=== PATIENT | male | born 1950 | race Caucasian/White ===

== ENCOUNTER 2019-01-03 20:15 | Emergency (ER) | payer OTHER, SELFPAY ==
[2019-01-03 20:16] VITALS: PULSE 88; RESP 32; TEMP 33.3; O2SAT 81; BMI 43.4
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
[2019-01-03 20:30] VITALS: BP 53/42; PULSE 76; RESP 21; O2SAT 84
[2019-01-03 20:43] VITALS: BP 74/46; PULSE 80; RESP 29; O2SAT 88
[2019-01-03 20:57] VITALS: BP 66/41; PULSE 70; RESP 25
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
[2019-01-03 21:02] VITALS: BP 50/33; PULSE 72; RESP 19; O2SAT 90
[2019-01-03] MEDS: Rocuronium Bromide 50 MG/5 ML Vial 150 MG IV (21:10)
[2019-01-03] MEDS: Ketamine HCl 500 MG/5 ML Vial 50 MG IV (21:11)
[2019-01-03 21:20] LABS: Absolute Lymphocyte Count 7.33 X10^3/ul (0.83-4.51); Absolute Neutrophil Count 3.2 X10^3/uL (2.0-7.7); Basophil# 0.06 X10^3/uL; Basophil% 0.5 % (0-1); Differential Indicated SCAN CRITERIA MET; Eosinophil# 0.27 X10^3/uL; Eosinophils% 2.2 % (0-5); Hematocrit 51.2 % (40-54); Hemoglobin 15.7 g/dl (13.0-16.5); Lymphocyte # 7.33 X10^3/ul (4.0); Lymphocyte % 59.7 % (19-41); Mean Corp Hgb Conc 30.7 g/gl (32-36); Mean Corpuscular Hgb 30.9 pg (27.0-32.0); Mean Corpuscular Volume 100.8 fL (80-94); Mean Platelet Vol. 9.6 fl (6.2-12.0); Monocyte# 1.28 X10^3/uL; Monocyte% 10.4 % (0-10); Neutrophil # 3.22 X10^3/uL (2.7-7.7); Neutrophil % 26.3 % (47-70); POSITIVE COUNT NO; POSITIVE DIFFERENTIAL YES; POSITIVE MORPHOLOGY YES; Platelet Count 200 K/mm3 (150-450); RBC Distribution Width CV 14.6 % (11.6-14.6); RBC Distribution Width SD 53.5 fl (35.1-43.9); Red Blood Count 5.08 M/mm3 (4.6-6.2); White Blood Count 12.3 K/mm3 (4.4-11.0)
[2019-01-03 21:21] LABS: International Normalized Ratio 1.1; Partial Thromboplast Time 35.5 Seconds (24.1-36.2); Prothrombin Time (Protime)PT. 14.4 SECONDS (11.7-14.9)
[2019-01-03 21:24] VITALS: PULSE 94; RESP 20
--- NOTE | 2019-01-03 21:24 | CPS ---
ALBUTEROL tx's given to lifeflight RN to be given in line with their transport vent during air transfer. Verbal order given by Dr. Lester.
[2019-01-03 21:26] LABS: AST(SGOT) 91 U/L (15-37); Alanine Aminotransfer ALT/SGPT 85 U/L (16-61); Albumin, Serum 3.5 g/dL (3.2-5.0); Alkaline Phosphatase 40 U/L (45-117); Anion Gap 19 (5-15); BUN 8 mg/dL (7-18); BUN/Creat Ratio 7.5 RATIO (10-20); Chloride 91 mmol/L (98-107); Creatinine, Serum 1.06 mg/dL (0.70-1.30); EST Glomerular Filtration Rate 74 mL/min (>60); Est Glom Filt Rate - Afr Amer 89 mL/min (>60); Estimated Creatinine Clearance 72.19 ml/min; Globulin 3.5 g/dL (2.2-4.2); Glucose 161 mg/dL (74-106); Lipase 426 U/L (73-393); Potassium 3.2 mmol/L (3.5-5.1); Sodium Level 132 mmol/L (136-145)
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
--- NOTE | 2019-01-03 21:42 | ED.RN ---
[facility]. DECISION MADE TO INTUBATE PATIENT. PT INTUBATED BY . SEE CRITICAL CARE ASSMNT FOR FURTHER. PT CARE TRANSFERRED TO [facility] AT 2134. BLOOD PRODUCTS GIVEN: 2049: UNITS [id number] AND [id number] -STARTED 2052: UNITS [id number] AND [id number] -STARTED BOTH UNITS STILL INFUSING ON TRANSFER
[2019-01-03 21:47] LABS: Differential Comment SCANNED
== END 2019-01-03 21:40 | disposition short-term general hospital (02) ==
LOC: ED 21:12
PROVIDERS: Emergency Provider Emergency Medicine
DX: S72.91XB Unspecified fracture of right femur, initial encounter for open fracture type I or II (principal); T79.4XXA Traumatic shock, initial encounter; R41.0 Disorientation, unspecified; V47.0XXA Car driver injured in collision with fixed or stationary object in nontraffic accident, initial encounter; Y93.I9 Activity, other involving external motion; Y92.410 Unspecified street and highway as the place of occurrence of the external cause; Y99.8 Other external cause status
CPT/HCPCS: 31500; 36430; 36556; 51702; 71045; 72170; 73552; 80053; 83690; 84484; 85025; 85610; 85730; 86850; 86900; 86920; 86922; 94640; 96374; 96375; 99251; 99285; J7030; P9016; A4216; G0463

== ENCOUNTER 2023-07-08 12:17 | Emergency (ER) | payer OTHER, SELFPAY ==
[2023-07-08 12:18] VITALS: BP 110/59; PULSE 89; RESP 18; TEMP 36.2; O2SAT 94
[2023-07-08 12:25] VITALS: BP 107/74; PULSE 94; RESP 14; O2SAT 93; BMI 39.8
--- NOTE | 2023-07-08 12:56 | EKG12_ITS ---
Test Reason : AFIB Blood Pressure : / mmHG Vent. Rate : 099 BPM Atrial Rate : 000 BPM P-R Int : 000 ms QRS Dur : 096 ms QT Int : 344 ms P-R-T Axes : 000 260 062 degrees QTc Int : 441 ms Atrial fibrillation with premature ventricular or aberrantly conducted complexes Right superior axis deviation Pulmonary disease pattern Septal infarct , age undetermined Abnormal ECG Confirmed by TRAV GARCIA, FELIX ([id number]), story editor ROSALVA RNICON ([id number]) on 07/14/2023 9:02:04 AM Referred By: Confirmed By:JOEL RAVI MD
--- NOTE | 2023-07-08 12:57 | EDS_ITS ---
HPI History of Present Illness Chief Complaint: Palpitations Detail of Chief Complaint: Low blood pressure Informant: patient Narrative Narrative: Patient presents to the emergency department complaint of low blood pressure this morning. Patient states that he was just discharged from the [place] yesterday where they attempted to cardiovert him out of his A-fib unsuccessfully. Patient on Eliquis. Patient on metoprolol. Patient to start amiodarone but not until this coming Friday which is about 5 days. Patient checked his blood pressure this morning and noted that it was 88/50. He repeated 2 hours later and was 88/51. Patient called the nurse line and was advised to be evaluated. He is without complaints. He denies chest pain or shortness of breath out of the ordinary. [facility] Medical History (Updated 07/08/23 @ 14:[address] Axel Srivastava, ) Atrial fibrillation COPD (chronic obstructive pulmonary disease) Former smoker Presence of artificial leg Home Medications albuterol sulfate 90 mcg/actuation aerosol inhaler (Ventolin HFA) 1 - 2 puff inhalation Q4H PRN PRN Wheezing ##1 09/13/17 [Rx Last Taken Unknown] atorvastatin 20 mg tablet 20 mg PO QHS 09/13/17 [History Last Taken Unknown] cholecalciferol (vitamin D3) 50 mcg (2,000 unit) capsule (Vitamin D3) 2,000 unit PO DAILY 09/13/17 [History Last Taken Unknown] finasteride 5 mg tablet 5 mg PO DAILY 09/13/17 [History Last Taken Unknown] hydrocodone-acetaminophen 5-325mg 5mg-325mg 1 - 2 tab PO Q4H PRN PRN Pain ##4 09/13/17 [Rx Last Taken Unknown] naproxen 500 mg tablet 500 mg PO BID PRN #20 tabs 09/13/17 [Rx Last Taken Unknown] Allergy/AdvReac Type Severity Reaction Status Date / Time No Known Allergies Allergy Verified 07/08/23 12:18 Social History Smoking Status: Former smoker ROS ROS ED ROS Narrative Hypotension Review of Systems ROS Unobtainable: other Constitutional Constitutional ED: Reports lethargy; Denies chills, fever(s), sweats or weight loss Eyes Eyes: Denies blurry vision, change in vision or diplopia ENT ENT ED: Denies rhinorrhea or sore throat Cardiovascular Cardiovascular: Denies chest pain, orthopnea or racing heartbeat Respiratory/Chest Respiratory/Chest: Denies cough, dyspnea, dyspnea on exertion, orthopnea or sputum Gastrointestinal Gastrointestinal: Denies abdominal pain, diarrhea, nausea or vomiting Genitourinary Genitourinary ED: Denies dysuria, hematuria or urinary frequency Musculoskeletal Musculoskeletal: Denies arthralgias, back pain, myalgias or neck pain Integumentary Denies abscess, Abrasions or rash Neurologic Neurologic: Denies headache(s) or weakness Psychiatric Psychiatric: Denies anxiety, depression or suicidal thoughts Endocrine Endocrinology: Denies polydipsia, polyphagia or polyuria Hematologic/Lymphatic Hematologic/Lymphatic: Denies easy bleeding, easy bruising or lymphadenopathy Allergic/Immunologic Allergic/Immunologic ED: Denies mouth swelling, tongue swelling or urticaria EXAM Physical Exam Const Vital Signs: 07/08/23 12:18 07/08/23 12:25 07/08/23 13:49 Temperature 97.1 F L Temperature Source Temporal Pulse Rate 89 94 96 Respiratory Rate 18 14 18 Blood Pressure 110/59 L 107/74 96/76 Blood Pressure Mean 76 85 82 Pulse Ox 94 93 98 Oxygen Delivery Method Room Air Room Air Room Air 07/08/23 14:53 07/08/23 14:53 Temperature Temperature Source Pulse Rate 86 79 Respiratory Rate 95 H 16 Blood Pressure 162/98 H Blood Pressure Mean Pulse Ox 99 Oxygen Delivery Method Positive well nourished and well developed General Appearance ED: well developed and NAD HEENT Reports TM's clear and moist mucous membranes normocephalic and atraumatic; Negative for trauma or tenderness Tympanic Membrane ED: Yes TM's clear Eyes PERRL and EOMs intact bilaterally General Eye ED: Negative for pale conjunctiva or scleral icterus Neck no lymphadenopathy, supple and no JVD General: Negative for tenderness Chest Wall inspection of chest normal and palpation of chest normal Chest: Negative for tenderness Resp normal respiratory effort and clear to auscultation bilaterally Effort and Inspection: Negative for respiratory distress or pain with movement Auscultation: Negative for rhonchi, wheezes or diminished lung sounds Cardio S1 normal heart sound, S2 normal heart sound and no murmurs; Negative for regular rate or regular rhythm Rhythm: abnormal rhythm irregularly irregular Peripheral Pulses: pulses 2+ throughout GI normal to inspection, nondistended, normoactive bowel sounds, soft to palpation, non-tender, non-distended and no masses Back/Spine no CVA tenderness and no thoracic nor lumbar tenderness Extremity normal to inspection General Extremety ED: Negative for edema General Extremity: Negative for edema Neuro oriented x3, CN's II-XII intact bilaterally, no sensory deficits noted and gait normal Sensorium / Orientation: awake, alert, oriented to person, oriented to place and oriented to time Motor Exam: strength 5/5 throughout and strength abnormal Psych mental status grossly normal Skin no rashes or lesions noted and no wounds MDM MDM MDM Narrative Medical decision making narrative: Patient presents with asymptomatic hypotension. He did bring a journal in with his blood pressures and looking back it does appear that he frequently runs systolic in the low 100s and 90s. He is asymptomatic. I will obtain some basic lab workup. EKG obtained arrival showed A-fib with a rate of 99 bpm with occasional PVCs. Rate was 99 bpm. CBC with differential was essentially unremarkable. Chemistries unremarkable. Troponin was normal at 5. I did give patient a 500 cc fluid bolus and blood pressures running from upper 90s systolic to the mid 80s systolic. He is completely asymptomatic. He ambulated in the [facility] without difficulty. I did discuss case with nurse practitioner for the [place] who participated in the patient's care when he was just recently admitted. Patient's blood pressures were in the 90s systolic there as well for the week that he was there. I was asked to cut patient's Lasix from 40 mg a day to 20 mg a day and patient to start his amiodarone the following Friday. Patient I feel can be safely discharged home. He is advised to return if lightheaded, dizzy, chest pain, short of breath, or condition should worsen anyway. Lab Data Attestation: I reviewed the patient's lab results. Labs: Laboratory Results - last 24 hr 07/08/23 12:30 WBC 11.4 H RBC 5.85 Hgb 17.3 H Hct 54.1 H MCV 92.5 MCH 29.6 MCHC 32.0 RDW Std Deviation 53.0 H RDW Coeff of Darci 15.9 H Plt Count 331 MPV 9.5 Immature Gran % (Auto) 0.500 Neut % (Auto) 49.5 Lymph % (Auto) 33.2 [place] % (Auto) 13.3 H Eos % (Auto) 2.5 Baso % (Auto) 1.0 Absolute Neuts (auto) 5.6 Absolute Lymphs (auto) 3.79 Nucleated RBC % 0 Differential Comment SCANNED Diff Path Review May foll Sodium 135 L Potassium 4.5 Chloride 101 Carbon Dioxide 26.0 Anion Gap 8 BUN 21 H Creatinine 0.97 Estim Creat Clear Calc 72.24 Est GFR (MDRD) Af Amer 97 Est GFR (MDRD) Non-Af 80 BUN/Creatinine Ratio 21.6 H Glucose 96 Calcium 9.0 Troponin I High Sens 5 EKG Initial EKG: Attestation: I personally reviewed and interpreted this EKG as follows: Comments: Atrial fibrillation with a rate of 99 bpm with PVCs, no acute ST segment changes Discharge Plan Triage Chief Complaint: Palpitations ED Provider: Axel Srivastava Dx/Rx/DC Orders Clinical Impression: Hypotension Instructions: Hypotension Dc Prescriptions: No Action atorvastatin 20 MG tablet 20 mg PO QHS finasteride 5 MG tablet 5 mg PO DAILY cholecalciferol (vitamin D3) [Vitamin D3] 2,000 UNIT capsule 2,000 unit PO DAILY naproxen 500 MG tablet 500 mg PO BID PRN Qty: 20 0RF albuterol sulfate [Ventolin HFA] 1 INHALER inhaler 1 - 2 puff inhalation Q4H PRN PRN (Reason: Wheezing) Qty: 1 0RF hydrocodone-acetaminophen 1 TABLET tablet 1 - 2 tab PO Q4H PRN PRN (Reason: Pain) Qty: 4 0RF Primary Care Provider: [facility] Referrals: [facility] [Primary Care Provider] - Activity Restrictions/Additional Instructions: Cut your Lasix (furosemide) from 40 mg/day to 20 mg/day. Disposition Disposition: Home, Self Care
[2023-07-08 13:37] LABS: Absolute Lymphocyte Count 3.79 X10^3/uL (0.83-4.51); Absolute Neutrophil Count 5.6 X10^3/uL (2.0-7.7); Basophil# 0.11 X10^3/uL; Eosinophil# 0.29 X10^3/uL; Eosinophils% 2.5 % (0-5); Hematocrit 54.1 % (40-54); Hemoglobin 17.3 g/dL (13.0-16.5); Lymphocyte # 3.79 X10^3/ul (0.83-4.51); Lymphocyte % 33.2 % (19-41); Mean Corpuscular Hgb 29.6 pg (27.0-32.0); Mean Corpuscular Volume 92.5 fL (80-94); Mean Platelet Vol. 9.5 fl (6.2-12.0); Monocyte# 1.52 X10^3/uL; Monocyte% 13.3 % (0-10); NRBC Flagged by Analyzer 0 % (0-5); Neutrophil # 5.63 X10^3/uL (2.7-7.7); Neutrophil % 49.5 % (47-70); POSITIVE DIFFERENTIAL YES; Platelet Count 331 K/mm3 (150-450); RBC Distribution Width CV 15.9 % (11.6-14.6); Red Blood Count 5.85 M/mm3 (4.6-6.2); White Blood Count 11.4 K/mm3 (4.4-11.0)
[2023-07-08 13:46] LABS: Anion Gap 8 (5-15); BUN 21 mg/dL (7-18); BUN/Creat Ratio 21.6 RATIO (10-20); Chloride 101 mmol/L (98-107); Creatinine, Serum 0.97 mg/dL (0.70-1.30); EST Glomerular Filtration Rate 80 mL/min (>60); Est Glom Filt Rate - Afr Amer 97 mL/min (>60); Estimated Creatinine Clearance 72.24 ml/min; Glucose 96 mg/dL (74-106); Potassium 4.5 mmol/L (3.5-5.1); Sodium Level 135 mmol/L (136-145); Troponin-I HS 5 pg/mL (3.0-78.0)
[2023-07-08 13:49] VITALS: BP 96/76; PULSE 96; RESP 18; O2SAT 98
[2023-07-08 13:58] LABS: Differential Indicated SCAN CRITERIA MET
[2023-07-08 14:35] LABS: Differential Comment SCANNED
[2023-07-08 14:53] VITALS: BP 162/98; PULSE 79; PULSE 86; RESP 16; RESP 95; O2SAT 99
[2023-07-10 10:29] LABS: Pathologist Review Reviewed
== END 2023-07-08 15:03 | disposition home or self-care (01) ==
PROVIDERS: Emergency Provider Emergency Medicine; Visit Provider Emergency Medicine
DX: I95.9 Hypotension, unspecified (principal); J44.9 Chronic obstructive pulmonary disease, unspecified; I48.91 Unspecified atrial fibrillation; Z87.891 Personal history of nicotine dependence; I49.3 Ventricular premature depolarization; Z79.01 Long term (current) use of anticoagulants
CPT/HCPCS: 80048; 84484; 85025; 93005; 96360; 99284; J7040; A4216

== ENCOUNTER 2024-06-02 09:19 | Emergency (ER) | payer OTHER, SELFPAY ==
[2024-06-02 09:20] VITALS: BP 121/73; PULSE 88; RESP 18; TEMP 35.9; O2SAT 94
[2024-06-02 09:22] VITALS: BMI 35.6
--- NOTE | 2024-06-02 09:34 | CT_ITS ---
INDICATION: Acute chest and back pain EXAMINATION: CTA abdomen and pelvis - TECHNIQUE: Routine abdominal CT angiogram protocol was performed with IV contrast. MIP images provided. A radiation dose optimization technique was used for this scan. IV Contrast dosage and agent: Radiation dose DLP mGy / cm. COMPARISON: 2016 FINDINGS: Lung bases: Chronic interstitial changes in the lung bases with nonspecific pleural thickening, dependent atelectasis, and concerning noncalcified nodular densities in the left lower lobe measuring between 0.4, and 1.5 cm. There is a small free-flowing right pleural effusion. Liver: Diffuse fatty infiltration of the liver is noted with low-density nodular densities in both lobes suspicious for metastasis. The anterior border of the liver is nodular suggesting there is underlying cirrhosis. Gallbladder: Gallbladder is borderline distended with pericholecystic fluid noted. Spleen: Spleen is absent. Adrenal gland: Normal. Kidneys: No obstructive uropathy or suspicious solid renal lesion. Pancreas:Normal. Bowel gas pattern: Small bowel loops are unremarkable. Extensive colonic diverticulosis noted without CT evidence of acute diverticulitis. Appendix: Appendix not identified. No inflammatory changes along the cecum present. Free air: None. Free fluid: None. Pelvis: Pelvic organs: No mass lesion noted. Bone survey: There are degenerative bony changes noted throughout the lumbar spine and pelvis with multiple old healed pelvic fractures. Surgical hardware across both SI joints free of complication. Adenopathy: Suspicious bulky periaortic, celiac axis and retroperitoneal lymph nodes measuring up to 3.7 cm in short axis dimension. Other: None. Vascular: Peripheral calcifications noted in the abdominal aorta and its branches, no evidence of aneurysm or dissection. There is no evidence of stenosis in the celiac axis, or SMA or either renal artery. Normal bifurcation into the common iliac arteries is noted. CT/CTA Abd/Pelvis W/WO Contrast IMPRESSION: There are multiple findings that are suspicious for metastasis. There are multiple noncalcified nodular densities in the left lung base measuring up to 1.5 cm. There are multiple suspicious low-density lesions throughout both lobes of the liver, and there is extensive bulky retroperitoneal adenopathy. Peripheral calcifications in the abdominal aorta and its branches without aneurysm or dissection. No stenosis noted. Pericholecystic fluid with mild biliary dilatation noted, cholecystitis cannot be excluded Scattered colonic diverticula, no CT evidence of acute diverticulitis Degenerative bony changes with evidence of multiple remote pelvic fractures. Surgical hardware in the pelvis and right femur free of complication Fatty liver with nodular borders suggesting underlying cirrhosis Electronically Signed: Lamin Smith MD at 11:36 EDT ,
--- NOTE | 2024-06-02 09:36 | EX.ED.DYSGE1 ---
HPI History of Present Illness Chief Complaint: Abn Labs Informant: patient Narrative Narrative: Patient was sent in by his primary care physician secondary to low platelets. Patient has a history of atrial fibrillation and went to one of the [place] facilities yesterday for cardioversion. Blood work there revealed a platelet count of 8000. He was hemodynamically stable with no evidence of bleeding. His cardioversion was put on hold and he was advised to follow-up with his primary physician. His PCPs office called last night and told him he needed to come to the emergency room. Patient denies any obvious source of bleeding. He does report feeling fatigued recently with some abdominal pain that is been ongoing for the past several months. No vomiting or diarrhea. No obvious blood in his urine or stool. [facility] Medical History Presence of artificial leg Former smoker COPD (chronic obstructive pulmonary disease) Atrial fibrillation Home Medications ?Medication ?Instructions ?Recorded ?Last Taken ?Type albuterol sulfate 90 mcg/actuation 1 - 2 puff inhalation Q4H PRN PRN 09/13/17 Unknown Rx aerosol inhaler (Ventolin HFA) Wheezing ##1 atorvastatin 20 mg tablet 20 mg PO QHS 09/13/17 Unknown History cholecalciferol (vitamin D3) 50 2,000 unit PO DAILY 09/13/17 Unknown History mcg (2,000 unit) capsule (Vitamin D3) finasteride 5 mg tablet 5 mg PO DAILY 09/13/17 Unknown History hydrocodone-acetaminophen 5-325mg 1 - 2 tab PO Q4H PRN PRN Pain ##4 09/13/17 Unknown Rx 5mg-325mg naproxen 500 mg tablet 500 mg PO BID PRN #20 tabs 09/13/17 Unknown Rx Allergy/AdvReac Type Severity Reaction Status Date / Time No Known Allergies Allergy Verified 06/02/24 09:20 Social History Smoking Status: Former smoker ROS ROS ED Constitutional Constitutional ED: Denies chills or fever(s) Eyes Eyes: Denies discharge from eye(s) ENT ENT ED: Denies discharge from eye(s), rhinorrhea or sore throat Cardiovascular Cardiovascular: Denies chest pain Respiratory/Chest Respiratory/Chest: Denies cough or dyspnea Gastrointestinal Gastrointestinal: Reports abdominal pain; Denies diarrhea, nausea or vomiting Genitourinary Genitourinary ED: Denies dysuria or hematuria Musculoskeletal Musculoskeletal: Denies back pain or extremity pain Integumentary Denies Abrasions or rash Neurologic Neurologic: Reports weakness; Denies headache(s) Psychiatric Psychiatric: Denies anxiety or depression Allergic/Immunologic Allergic/Immunologic ED: Denies lip swelling or urticaria EXAM Physical Exam Const Vital Signs: 06/02/24 09:20 06/02/24 09:20 06/02/24 10:20 Temperature 96.7 F L Temperature Source Temporal Pulse Rate 88 86 Respiratory Rate 18 16 Respiratory Effort Short of Breath Labored Respiratory Pattern Normal Blood Pressure 121/73 H 110/69 Blood Pressure Mean 89 82 Pulse Ox 94 94 Oxygen Delivery Method Room Air Room Air 06/02/24 11:20 06/02/24 12:00 06/02/24 13:00 Temperature Temperature Source Pulse Rate 87 86 84 Respiratory Rate 17 19 H 17 Respiratory Effort Respiratory Pattern Blood Pressure 107/67 121/64 H 117/73 Blood Pressure Mean 80 83 87 Pulse Ox 94 94 95 Oxygen Delivery Method Room Air Room Air Room Air Positive well nourished and well developed General Appearance ED: well developed HEENT Reports moist mucous membranes Eyes EOMs intact bilaterally Chest Wall inspection of chest normal and palpation of chest normal Resp normal respiratory effort and clear to auscultation bilaterally Cardio Rhythm: abnormal rhythm irregularly irregular GI GI Narrative: Abdomen soft with no focal tenderness. Hypoactive but present bowel sounds noted. Extremity normal to inspection Neuro oriented x3 and no sensory deficits noted Motor Exam: strength 5/5 throughout Psych mental status grossly normal Skin no wounds MDM MDM MDM Narrative Medical decision making narrative: I did check Clinisync, but am unable to see any recent lab work. IV line will be established. Labwork obtained to evaluate for leukocytosis, anemia, and electrolyte derangement. Urinalysis obtained to evaluate for infection/hematuria. CTA of the abdomen and pelvis obtained to evaluate for any evidence of ischemic bowel. History & Record Review Discussion w/independent historian: Patient Lab Data Attestation: I reviewed the patient's lab results. Labs: Laboratory Results - last 24 hr 06/02/24 06/02/24 10:00 11:54 WBC 17.8 H RBC 5.31 Hgb 14.4 Hct 45.7 MCV 86.1 MCH 27.1 MCHC 31.5 L RDW Std Deviation 50.0 H RDW Coeff of Darci 16.3 H Plt Count 77 L MPV 13.6 H Immature Gran % (Auto) 0.800 Neut % (Auto) 73.3 H Lymph % (Auto) 11.6 L [place] % (Auto) 12.1 H Eos % (Auto) 1.4 Baso % (Auto) 0.8 Absolute Neuts (auto) 13.0 H Absolute Lymphs (auto) 2.06 Nucleated RBC % 0 Differential Comment COMMENT Diff Path Review May foll Platelet Estimate MOD DEC PT 18.3 H INR 1.5 APTT 31.7 Sodium 137 Potassium 3.6 Chloride 103 Carbon Dioxide 25.0 Anion Gap 9 BUN 16 Creatinine 0.78 Est GFR (MDRD) Af Amer 126 Est GFR (MDRD) Non-Af 104 BUN/Creatinine Ratio 20.6 H Glucose 95 Lactic Acid 1.7 Calcium 8.7 Total Bilirubin 1.40 H Direct Bilirubin 0.70 H AST 99 H ALT 33 Alkaline Phosphatase 348 H Total Protein 7.5 Albumin 3.2 Globulin 4.3 H Urine Color Straw Urine Clarity Clear Urine pH 6.0 Ur Specific Mitchell 1.010 Urine Protein Negative Urine Glucose (UA) 1000 H Urine Ketones Negative Urine Occult Blood Negative Urine Nitrite Negative Urine Bilirubin Negative Urine Urobilinogen 1 H Ur Leukocyte Esterase 25 H Urine RBC 0 SEEN Urine WBC 0-5 SEEN Ur Squamous Epith Cells 0 SEEN Urine Bacteria 0 SEEN Urine Mucus 0 SEEN Radiography Diagnostic Testing: Clinical Impression(s) from Imaging Studies Abdomen/Pelvis CTA 06/02/24 09:34 IMPRESSION: There are multiple findings that are suspicious for metastasis. There are multiple noncalcified nodular densities in the left lung base measuring up to 1.5 cm. There are multiple suspicious low-density lesions throughout both lobes of the liver, and there is extensive bulky retroperitoneal adenopathy. Peripheral calcifications in the abdominal aorta and its branches without aneurysm or dissection. No stenosis noted. Pericholecystic fluid with mild biliary dilatation noted, cholecystitis cannot be excluded Scattered colonic diverticula, no CT evidence of acute diverticulitis Degenerative bony changes with evidence of multiple remote pelvic fractures. Surgical hardware in the pelvis and right femur free of complication Fatty liver with nodular borders suggesting underlying cirrhosis Electronically Signed: Lamin Smith MD at 11:36 EDT , Chest CT 06/02/24 12:34 IMPRESSION: Multiple suspicious noncalcified nodular densities in both lung renteria suggestive of metastasis. Chronic interstitial changes in both lung renteria with small free-flowing pleural effusions and dependent atelectasis. No organized infiltrate. No suspicious adenopathy Lytic and sclerotic changes within multiple vertebral bodies suspicious for metastasis Electronically Signed: Lamin Smith MD at 13:33 EDT , Treatment and Re-Evaluation :: [facility] Patient's platelet count was 85,000 on June 01. CBC today reveals a white count of 17.8 with a hemoglobin of 14.4. Platelet count is down to 77,000. INR is 1.5. Chemistry studies are unremarkable. LFTs significant for total bili of 1.4 and a direct bili of 0.7. Alk phos is 348. Urinalysis reveals 1000 of glucose but no evidence of acute infection. No red blood cells noted. CTA of the abdomen and pelvis is obtained and reveals multiple findings suspicious for metastasis. Test results were discussed with the patient. He has never been diagnosed with cancer. I spoke with Dr. George, on-call for hematology/oncology. He did request a CT of the chest and put in an order for a fast pass for close follow-up. CT of the chest reveals multiple suspicious noncalcified nodular densities suggestive of metastasis. No obvious primary source identified. Staff from the cancer center will be over to see the patient and arrange a follow-up appointment. Patient updated on his test results. Return instructions provided. Discharge Plan Triage Chief Complaint: Abn Labs ED Provider: Yaritza Whiteside Dx/Rx/DC Orders Clinical Impression: Thrombocytopenia Instructions: Thrombocytopenia Prescriptions: No Action atorvastatin 20 MG tablet 20 mg PO QHS finasteride 5 MG tablet 5 mg PO DAILY cholecalciferol (vitamin D3) [Vitamin D3] 2,000 UNIT capsule 2,000 unit PO DAILY naproxen 500 MG tablet 500 mg PO BID PRN Qty: 20 0RF albuterol sulfate [Ventolin HFA] 1 INHALER inhaler 1 - 2 puff inhalation Q4H PRN PRN (Reason: Wheezing) Qty: 1 0RF hydrocodone-acetaminophen 1 TABLET tablet 1 - 2 tab PO Q4H PRN PRN (Reason: Pain) Qty: 4 0RF Other Ambulatory Orders: Fast Pass: Oncology Referral [facility] (Routine) Facility: [facility] - Location: [facility] Ordered By: Dr. Yaritza Whiteside Primary Care Provider: [place] Referrals: Piter George MD [Med Staff - Active Staff] - Keep Ina appointment [place] [Primary Care Provider] - Activity Restrictions/Additional Instructions: As discussed, the CT scans of your chest, abdomen, and pelvis suggest possible metastatic disease. We are not able to identify a primary source of any cancer at this time. Please follow-up with hematology/oncology for further evaluation of this as well as your low platelet count. Print Language: Hungarian Disposition Disposition: Home, Self Care
[2024-06-02 10:18] LABS: Absolute Lymphocyte Count 2.06 X10^3/uL (0.83-4.51); Basophil# 0.14 X10^3/uL; Basophil% 0.8 % (0-1); Differential Indicated SCAN CRITERIA MET; Eosinophil# 0.24 X10^3/uL; Eosinophils% 1.4 % (0-5); Hematocrit 45.7 % (40-54); Hemoglobin 14.4 g/dL (13.0-16.5); Lymphocyte # 2.06 X10^3/ul (0.83-4.51); Lymphocyte % 11.6 % (19-41); Mean Corp Hgb Conc 31.5 g/dL (32-36); Mean Corpuscular Hgb 27.1 pg (27.0-32.0); Mean Corpuscular Volume 86.1 fL (80-94); Mean Platelet Vol. 13.6 fl (6.2-12.0); Monocyte# 2.15 X10^3/uL; Monocyte% 12.1 % (0-10); NRBC Flagged by Analyzer 0 % (0-5); Neutrophil # 13.04 X10^3/uL (2.7-7.7); Neutrophil % 73.3 % (47-70); POSITIVE COUNT YES; POSITIVE DIFFERENTIAL YES; Platelet Count 77 K/mm3 (150-450); RBC Distribution Width CV 16.3 % (11.6-14.6); Red Blood Count 5.31 M/mm3 (4.6-6.2); White Blood Count 17.8 K/mm3 (4.4-11.0)
[2024-06-02 10:20] VITALS: BP 110/69; PULSE 86; RESP 16; O2SAT 94
[2024-06-02 10:30] LABS: AST(SGOT) 99 U/L (15-37); Alanine Aminotransfer ALT/SGPT 33 U/L (16-61); Albumin, Serum 3.2 g/dL (3.2-5.0); Alkaline Phosphatase 348 U/L (45-117); Anion Gap 9 (5-15); BUN 16 mg/dL (7-18); BUN/Creat Ratio 20.6 RATIO (10-20); Calcium,Total 8.7 mg/dL (8.5-10.1); Chloride 103 mmol/L (98-107); Creatinine, Serum 0.78 mg/dL (0.70-1.30); EST Glomerular Filtration Rate 104 mL/min (>60); Est Glom Filt Rate - Afr Amer 126 mL/min (>60); Globulin 4.3 g/dL (2.2-4.2); Glucose 95 mg/dL (74-106); Potassium 3.6 mmol/L (3.5-5.1); Protein, Total 7.5 g/dL (6.4-8.2); Sodium Level 137 mmol/L (136-145)
[2024-06-02 10:32] LABS: International Normalized Ratio 1.5; Prothrombin Time (Protime)PT. 18.3 SECONDS (11.7-14.9)
[2024-06-02 10:33] LABS: Partial Thromboplast Time 31.7 Seconds (24.1-36.2)
[2024-06-02 10:47] LABS: Platelet Estimate MOD DEC (ADEQ)
[2024-06-02 10:51] LABS: Lactic Acid 1.7 mmol/L (0.4-1.9)
[2024-06-02 11:20] VITALS: BP 107/67; PULSE 87; RESP 17; O2SAT 94
[2024-06-02 11:58] LABS: Bacteria 0 SEEN /hpf (None Seen); Mucous, Urine 0 SEEN /hpf (<or=2+); Red Blood Cells-Urine 0 SEEN /hpf (0-5); Squamous Epithelial Cells - UA 0 SEEN /hpf (0-5)
[2024-06-02 12:00] VITALS: BP 121/64; PULSE 86; RESP 19; O2SAT 94
[2024-06-02 12:03] LABS: Color, Urine Straw (Yellow); Glucose, Dipstick 1000 mg/dl (Normal); Ketone-Dipstick Negative (Negative); Leukocyte Esterase-Dipstick 25 /ul (Negative); Nitrite-Dipstick Negative (Negative); Occult Blood-Urine Negative /ul (Negative); Protein-Dipstick Negative (Negative); Urine Bilirubin Dipstick Negative (Negative); Urine Clarity Clear (Clear); Urine Urobilinogen 1 mg/dl (Normal)
[2024-06-02 12:16] LABS: White Blood Cells 0-5 SEEN /hpf (0-5)
--- NOTE | 2024-06-02 12:34 | CT_ITS ---
INDICATION: Fever and cough, possible metastasis. EXAMINATION: CT CHEST WITHOUT CONTRAST - CT Chest W/O Contrast Injection TECHNIQUE: Helically acquired images were obtained of the chest. A radiation dose optimization technique was used for this scan. IV Contrast dosage and agent: None. COMPARISON: None. FINDINGS: LUNGS, PLEURA AND LARGE AIRWAYS: Lung windows show underlying emphysema. There are scattered noncalcified nodular densities in both lung renteria highly suspicious for metastasis. They are too numerous to count. The largest in the right lung is on axial image 82 measuring 1 cm largest in the left lung is on axial image 97 measuring 1.3 cm. Chronic interstitial changes noted in both lung bases with small pleural effusions and associated atelectasis. Thyroid gland is unremarkable. HEART AND PERICARDIUM: Heart size is normal. No pericardial effusion. CORONARY ARTERIES: Coronary artery calcification is seen. VESSELS: Thoracic aorta is not dilated. MEDIASTINUM AND MADHAVI: No suspicious bulky mediastinal or hilar adenopathy. Esophagus is unremarkable. No hiatal hernia. UPPER ABDOMEN: Limited because the upper abdomen show hepatomegaly with nodular borders of the liver suggesting cirrhosis, there is fatty infiltration and subtle hypodense lesions are noted but these cannot be accurately evaluated without IV contrast. BONES: Degenerative bony changes noted along with multiple suspicious erosive lesions suggesting metastasis. These are seen in the left pedicle on the T1 vertebral body the right side of the T5 vertebral body in the T7 vertebral body, along with multiple sclerotic changes as well particularly in the T10 and L1 vertebral bodies. CT/Chest without Contrast IMPRESSION: Multiple suspicious noncalcified nodular densities in both lung renteria suggestive of metastasis. Chronic interstitial changes in both lung renteria with small free-flowing pleural effusions and dependent atelectasis. No organized infiltrate. No suspicious adenopathy Lytic and sclerotic changes within multiple vertebral bodies suspicious for metastasis Electronically Signed: Lamin Smith MD at 13:33 EDT ,
[2024-06-02 13:00] VITALS: BP 117/73; PULSE 84; RESP 17; O2SAT 95
[2024-06-02 14:00] VITALS: BP 107/67; PULSE 90; RESP 22; TEMP 36.4; O2SAT 94
[2024-06-04 09:27] LABS: Pathologist Review Reviewed
== END 2024-06-02 14:30 | disposition home or self-care (01) ==
PROVIDERS: Emergency Provider Emergency Medicine; Visit Provider Emergency Medicine
DX: D69.6 Thrombocytopenia, unspecified (principal); I48.91 Unspecified atrial fibrillation; Z87.891 Personal history of nicotine dependence; J98.4 Other disorders of lung
CPT/HCPCS: 71250; 74174; 80048; 80076; 81001; 83605; 85025; 85610; 85730; 99283; Q9967; A4216

== ENCOUNTER → 2024-06-15 | Outpatient (CLI) | payer OTHER, SELFPAY ==
--- NOTE | 2024-06-15 08:58 | NM_ITS ---
CLINICAL: Male, 73 years old. UNKNOWN PRIMARY CANCER, METASTATIC LESIONS SEEN IN LUNGS, LIVER AND BONES -- HISTORY OF RIGHT LOWER LEG AMPUTION WHOLE BODY NUCLEAR BONE SCAN TECHNIQUE: Following the IV administration of 27 mCi of Tc MDP, whole body bone imaging was performed with a gamma camera following a three hour delay. COMPARISON STUDIES : NM - None. CR - Not available for review at this time. CT - Not available for review at this time. MR - Not available for review at this time. US - Not available for review at this time. FINDINGS: There is a normal concentration of radiopharmaceutical throughout the axial and appendicular skeletal system without either a focal decrease or increase in uptake. The patient is status post right below knee amputation. There is some faint increased uptake within the distal shaft of the right femur which may represent a healed fracture. Normal excretion of radiopharmaceutical by the kidneys into the bladder. NM/Bone Scan Whole Body IMPRESSION: 1. No scintigraphic evidence of metastatic disease. 2. Possible healed fracture of the distal shaft of the right femur and correlation with radiographs would be useful. 3. Status post right below knee amputation. Electronically Signed: Jaspreet Back MD at 14:33 EDT ,
== END | disposition home or self-care (01) ==
LOC: NM 08:55
PROVIDERS: Referring Provider Internal Medicine Hematology & Oncology; Visit Provider Internal Medicine Hematology & Oncology
DX: C79.9 Secondary malignant neoplasm of unspecified site (principal)
CPT/HCPCS: 78306; A9503

== ENCOUNTER → 2024-06-17 | Outpatient (CLI) | payer OTHER, SELFPAY ==
--- NOTE | 2024-06-16 | IMM_PTH ---
PATIENT: JAY PINZON LOC: CT U#:[id number] AGE/SX: 73/M ROOM: RE06/17/[address]: Dr. Braeden Ortiz MD : 1950 BED: DIS: 06/17/2024 SPEC #: [id number] RECD: 06/18/24 10:56 STATUS: RED REQ #: [id number] AYALA: 06/16/24 00:[address]: Braeden Ortiz DEPT: IMMUNOHISTOCHEMISTRY RECD BY: Kaleb Marr ENTERED: 06/18/24 10:57 SP TYPE: IMMUNO OTHR DR: [facility] Tissues: Liver, NOS Procedures: RCC (add) NAPSIN A (add) CK20 (add) CK5-6 (add) CK7 (add) CK8 (add) HEP PAR (add) KI-67 (add) P53 (add) TTF1 (add) Pankeratin (initial) P40 (add) PSAP (add) PHYSICIAN & [address] [address] SPECIMEN INFORMATION: Tissue Source: Liver biopsy Clinical Info: Liver mass Specimen Number: [id number] CPT code: 17718,[id number] METHODOLOGY: Deparaffinized sections of prefer/formalin-fixed tissue or PAP/DQ stained slides are incubated with monoclonal/polyclonal antibodies/oligonucleotide probes. Localization is made via biotin free immunoperoxidase method. Appropriate controls are performed and reacted as expected. Results on target cell population are indicated in the following table: RESULTS: ANTIBODY / CLONE RESULT AE1-3 (AE1/AE3/PCK26) positive CK7 (OV-TL12/30) positive CK8 (53mjypE66) positive CK20 (KS20.8) negative TTF-1 (8G7G3/1) negative Napsin A (Rabbit Polyclonal) negative HepPar (OCh1E5) negative RCC (PN-15) negative PSAP (PASE/4LJ) negative CK5-6 (D5 & 1684) negative P40 (BC28) negative P53 (DO-7) positive, focal wild type pattern Ki-67 (30-9) positive, moderate ~50% These tests were developed and their performance characteristics determined by [facility]. They may not have been cleared or approved by the U.S. Food and Drug Administration. The FDA has determined that such clearance or approval is not necessary. The above immunohistochemical/dualISH markers are ordered and reviewed by the Pathologist. INTERPRETATION: Liver, CT guided core biopsy: Consistent with poorly differentiated metastatic adenocarcinoma. See comment. COMMENT: IHC profile is contributory for primary site of origin. This case has been reviewed in consultation with Dr. Queen who concurs with the above diagnosis. SJ/mr 06/21/2024
--- NOTE | 2024-06-16 | ASPIGT_PTH ---
PATIENT: JAY PINZON LOC: ME U#:[id number] AGE/SX: 73/M ROOM: RE06/17/[address]: Dr. Braeden Ortiz MD : 1950 BED: DIS: 06/17/2024 SPEC #: [id number] RECD: 06/17/24 09:30 STATUS: RED REXiomara #: [id number] AYALA: 06/16/24 00:[address]: Braeden Ortiz DEPT: SURGICAL PATHOLOGY RECD BY: Bree Bauer ENTERED: 06/17/24 10:19 SP TYPE: ASP RAD OTHR DR: [facility] Tissues: Liver, NOS Procedures: FNA Specimen Adequacy Special Stain Group II Surgery Specimen Level IV Surgery Specimen Level V Imprint (control) HEADER OPERATION: Liver mass biopsy PRE-OP DIAGNOSIS: Liver mass TISSUE SUBMITTED: 18 gauge x5 cores MICROSCOPIC DIAGNOSIS Liver, CT guided core biopsy: Poorly differentiated metastatic adenocarcinoma. See comment. /mr 06/18/2024 COMMENT The specimen is evaluated at the time of biopsy by Dr. Preston. Immediate Evaluation = Set #1- Atypical hepatocytes noted (2smears). Set #2- Atypical hepatocytes noted (2 smears). Immunohistochemistry ([id number]) supports the above diagnosis. IHC profile is noncontributory for primary site of origin. Molecular studies on the tumor can be performed if clinically indicated. Please notify the laboratory if they are needed. Case has been reviewed in consultation with Dr. Queen who concurs with the above diagnosis. IDC:AM MICROSCOPIC DESCRIPTION Slides are reviewed. GROSS DESCRIPTION Received in fixative is one container labeled with the patient's name and designated Liver biopsy. The specimen consists of multiple elongated fragments of lamb soft tissue measuring in aggregate 2.0 x 0.3 x 0.1cm. The entire specimen is submitted in one cassette. Four touch imprints are prepared at the time of core biopsy. / 06/17/2024 TC:0 [facility]:[id number] ADDENDUM ADDENDUM ADDENDUM ADDENDUM ADDENDUM ADDENDUM ADDENDUM ADDENDUM ADDENDUM ADDENDUM ADDENDUM ADDENDUM ADDENDUM ADDENDUM ADDENDUM ADDENDUM ADDENDUM ADDENDUM ADDENDUM ADDENDUM ADDENDUM ADDENDUM ADDENDUM ADDENDUM ADDENDUM ADDENDUM ADDENDUM ADDENDUM ADDENDUM ADDENDUM ADDENDUM ADDENDUM ADDENDUM ADDENDUM ADDENDUM ADDENDUM ADDENDUM ADDENDUM ADDENDUM ADDENDUM ADDENDUM ADDENDUM ADDENDUM ADDENDUM ADDENDUM ADDENDUM ADDENDUM ADDENDUM ADDENDUM ADDENDUM ADDENDUM ADDENDUM ADDENDUM ADDENDUM ADDENDUM ADDENDUM 07/16/2024 09:24 ADDENDUM 07/16/2024 09:24 ADDENDUM 07/16/2024 09:24 ADDENDUM 07/16/2024 09:24 ADDENDUM 07/16/2024 09:24 [facility] SOL[facility] TUMOR REPORT FROM [facility] diagnosis: Liver, core biopsy: Concurrent solid tumor immunohistochemical analysis showed metastatic adenocarcinoma. The immunohistochemical profile was not specific for tumor origin. Lung or upper gastrointestinal tract may be considered most likely primary site amongst others (#[id number]). TUMOR TYPE: Adenocarcinoma RESULT SUMMARY: [facility] INTERPRETATION SUMMARY: Multiple NGS library preparations were attempted, however sufficient DNA quantity was not obtained from the submitted specimen, therefore testing has been cancelled. If additional material is available and submitted; sample pre-analysis can be performed. CLINICAL INFORMATION: Liver core biopsy showed poorly differentiated metastatic adenocarcinoma. (Testing performed on #[id number]). HISTOPATHOLOGIC REVIEW: Tumor is present and is estimated to comprise >50% of nuclei in the sample. SOLID TUMOR IMMUNOHISTOCHEMISTRY CK7 (OV-TL12/30) positive CK20 (KS20.8) negative ARGINASE-1 positive GLYPICAN-3 negative AFP negative CDX2 ([id number]) negative CEA monoclonal negative MUC2 negative MUC4 negative MUC5AC negative CA19.9 Focally positive GATA3 (L50-823) negative TTF-1 (8G7G3/1) negative HEPATOCYTE negative EPCAM positive PODXL-1 negative Napsin A (Rabbit Polyclonal) negative PAX-8 negative ER (6F11) negative VILLIN negative NKX3.1 negative CD56 (123C3.D5) negative SYNAPTOPHYSIN negative Chromo (LK2H10) negative Ki-67 (30-9) 50-60% positive Please see complete report in e-chart or EMR
[2024-06-17] VITALS (13 sets, daily range): BP systolic 99–119; BP diastolic 55–92; PULSE 87–105; RESP 18–27; TEMP 36.1; O2SAT 91–97; BMI 37.3
--- NOTE | 2024-06-17 06:36 | CT_ITS ---
PROCEDURE: CT DIRECTED CORE LIVER BIOPSY INDICATION: Male, 73 years old. UNKNOWN PRIMARY CANCER -- LIVER BIOPSY PHYSICIAN: Dr. Case. CONSENT: Written informed consent was obtained having explained the risks, benefits and alternatives in detail with the patient who accepted the risks and agreed to proceed. Laboratory review and clinical assessment was performed. CONSCIOUS SEDATION PROTOCOL: The Drugs used were: 2 mg Versed, IV., and 50 mcg Fentanyl, IV. The sedation time was: 26 minutes. Conscious sedation was started at 9:16 AM and terminated at 9:42 AM. The conscious sedation protocol was independently monitored. RADIATION DOSAGE (If Supplied By Facility): CTDIvol = ( 24 ) mGy, DLP = ( 553.23 ) mGycm Individualized dose optimization techniques were used for this CT. TECHNIQUE: Using CT image guidance with image documentation, a suitable location in the right lobe of the liver was identified. Using a right lateral approach, puncture of the liver was uneventful with an 18-gauge core needle system. 6, 18-gauge core samples were obtained, and submitted in formalin to the pathologist for further assessment. Followup CT scan revealed no distinct sequelae. CT/Biopsy/Inj or Needle Placement IMPRESSION: 1. CT directed core needle biopsy of the liver, using CT image guidance with image documentation as described. 2. Conscious Sedation protocol utilized with independent monitoring. Electronically Signed: Pan Case MD at 10:00 EDT ,
[2024-06-17 06:57] LABS: Platelet Count 87 K/mm3 (150-450)
[2024-06-17 07:04] LABS: International Normalized Ratio 1.3; Partial Thromboplast Time 31.2 Seconds (24.1-36.2); Prothrombin Time (Protime)PT. 15.9 SECONDS (11.7-14.9)
[2024-06-17] MEDS: 0.9% Saline Lock 10 ML Syringe IV (08:34)
[2024-06-17] MEDS: 0.9% Normal Saline (250mL Bag) 250 ML 15 ML IV (08:37)
[2024-06-17] MEDS: Midazolam 2 MG/2 ML Syringe IV (09:16)
[2024-06-17] MEDS: fentaNYL 100 MCG/2 ML Ampul IV (09:18)
[2024-06-17] MEDS: Lidocaine 2% (20 ml mdv) 20 ML Vial INFILT (09:32)
== END | disposition home or self-care (01) ==
LOC: CT 06:35
PROVIDERS: Nurse Practitioner Acute Care; Referring Provider Internal Medicine Hematology & Oncology; Visit Provider Internal Medicine Hematology & Oncology
DX: C78.7 Secondary malignant neoplasm of liver and intrahepatic bile duct (principal); C80.1 Malignant (primary) neoplasm, unspecified; Z79.01 Long term (current) use of anticoagulants
CPT/HCPCS: 47000; 36415; 77012; 85049; 85610; 85730; 88172; 88305; 88307; 88313; 88341; 88342; 99156; J7050; A4216